=== PATIENT | male | born 1975 | race Caucasian/White ===

== ENCOUNTER 2021-01-19 07:20 | Outpatient (REF) | payer BC, SELFPAY ==
[2021-01-19 10:39] LABS: MANUAL DIFF FLAG NO
[2021-01-19 10:54] LABS: Basophils Percent Auto 0.7 % (0-2); Eosinophils Absolute Auto 0.2 X10*3/uL (0.0-0.4); Eosinophils Percent Auto 3.4 % (0-4); Hematocrit 43.7 % (42-52); Hemoglobin 14.8 g/dl (14.0-18.0); Imm Gran Abs Auto 0.03 X10*3/uL (0.00-0.03); Imm Gran Pct Auto 0.6 % (0.0-0.4); Lymphocytes Absolute Auto 1.7 X10*3/uL (1.2-4.9); Mean Corpuscular HGB Conc 33.9 g/dl (31.0-36.0); Mean Corpuscular Hemoglobin 31.5 pg (27.0-33.0); Mean Platelet Volume 10.7 fL (9.4-12.4); Monocytes Absolute Auto 0.5 X10*3/uL (0.1-1.2); Monocytes Percent Auto 9.4 % (2-11); Neutrophils Absolute Auto 2.9 X10*3/uL (2.0-8.3); Neutrophils Percent Auto 53.9 % (45-73); Platelet Count 298 X10*3/uL (160-400); Red Cell Distribution Width 12.7 % (11.0-16.0); White Blood Count 5.3 X10*3/uL (4.8-10.8)
[2021-01-19 11:00] LABS: Glucose Urine UA NEG (NEG); Leukocyte Esterase Urine NEG (NEG); Nitrite Urine NEG (NEG); Urine Blood NEG (NEG); Urine Ketones NEG (NEG); Urine Protein TRACE MG/DL (NEG-TRACE)
[2021-01-19 11:05] LABS: Appearance Urine HAZY; Color Urine YELLOW
[2021-01-19 11:09] LABS: Estimated Average Glucose 105 mg/dL; Hemoglobin A1C 125.8442 umol/L; Hemoglobin A1c % 5.3 %
[2021-01-19 11:39] LABS: Alanine Aminotransferase 20 U/L (0-40); Albumin Level 4.4 g/dL (3.5-5.0); Alkaline Phosphatase 139 U/L (39-117); Anion Gap 11 (12-20); Aspartate Amino Transferase 21 U/L (5-37); Bilirubin Total 0.9 mg/dL (0.0-1.0); Blood Urea Nitrogen 15 mg/dL (9-16); Carbon Dioxide 27 mmol/L (22-29); Chloride 104 mmol/L (96-108); Cholesterol 216 mg/dL; Estimated Glomerular Filt Rate > 60; Glucose Fasting 110 mg/dL (60-99); HDL Cholesterol 85 mg/dL; LDL Cholesterol Calculated 118 mg/dl; Potassium 4.3 mmol/L (3.3-5.1); Sodium 138 mmol/L (135-145); Total Protein 7.5 g/dL (6.5-8.0); Triglycerides 69 mg/dL
[2021-01-19 11:55] LABS: PSA,Total (Free>4and<10) 0.49 ng/mL (0.00-4.00)
[2021-01-19 12:11] LABS: Microalbum/Creatinine Ratio Ur 2.7 ug/mg cr
== END 2021-01-19 07:21 | disposition home or self-care (01) ==
LOC: HO.LNP 07:20
PROVIDERS: Visit Provider Internal Medicine
DX: Z00.00 Encounter for general adult medical examination without abnormal findings (principal); Z12.5 Encounter for screening for malignant neoplasm of prostate; R73.03 Prediabetes; E78.00 Pure hypercholesterolemia, unspecified
CPT/HCPCS: 80053; 80061; 81003; 82043; 83036; 84153; 85025

== ENCOUNTER 2021-01-20 14:03 | Outpatient (REF) | payer BC, SELFPAY ==
[2021-01-20 15:08] LABS: Alkaline Phosphatase 152 U/L (39-117)
== END 2021-01-20 14:04 | disposition home or self-care (01) ==
LOC: HO.LNP 14:03
PROVIDERS: Visit Provider Internal Medicine
DX: R74.8 Abnormal levels of other serum enzymes (principal)
CPT/HCPCS: 84075

== ENCOUNTER 2021-04-21 08:07 | Outpatient (REF) | payer BC, SELFPAY ==
--- NOTE | ~2021-04-21 | CT_ITS ---
EXAMINATION: CT CHEST WITH CONTRAST CLINICAL INFORMATION: Chronic cough COMPARISON: None TECHNIQUE: Multidetector volumetric CT imaging of the chest was obtained after the administration of 65 mL of Omnipaque 350 intravenous contrast without immediate adverse reactions. Axial MIP volume rendering provided. Sagittal and coronal reformatted images were obtained. This CT examination was performed using dose optimization techniques as appropriate, variously including the following: *Automated exposure control *Adjustment of mA and/or kV according to patient size (this includes techniques or standardized protocols for targeted exams where dose is matched to indication/reason for exam; i.e. extremities or head) *Use of iterative reconstruction technique DLP: 200 mGy-cm FINDINGS: LUNGS: There is a 2 mm probably calcified right middle lobe nodule axial image 113 series 7. There is a 2 mm peripheral or subpleural noncalcified right middle lobe nodule axial image 124 series 7. There is a 3 mm peripheral or subpleural right middle lobe nodule axial image 129 series 7. The lungs are otherwise clear. No evidence of interstitial lung disease emphysema or bronchiectasis is seen. No endobronchial or endotracheal lesion is seen. MEDIASTINUM: There is coronary artery calcification. No enlarged lymph nodes are seen. There is no pericardial effusion. The thoracic aorta is normal in caliber. The visualized thyroid gland is normal. PLEURA: There is no pleural effusion. No pleural mass or thickening. AXILLA: No lymphadenopathy. UPPER ABDOMEN: There is diverticulosis of the colon. OSSEOUS STRUCTURES: There are old or healing left anterior lateral seventh and eighth rib fractures. There are degenerative changes of the spine. CT/CT chest w con IMPRESSION: Small pulmonary nodules or micronodules. According to the UPDATED 2017 Fleischner Society recommendations, the advised follow-up imaging for less than 6 mm nodule: Low risk, no chest CT follow-up and high risk, optional chest CT follow-up in one year. Coronary artery calcification. Healing left anterior lateral rib fractures. Fleischner guidelines were followed.
[2021-04-21] MEDS: iohexoL 350 MG/ML 100 ML INFUS..BTL IV (09:16)
== END 2021-04-21 08:08 | disposition home or self-care (01) ==
LOC: HO.CT 08:07
PROVIDERS: Visit Provider Internal Medicine
DX: R05.3 Chronic cough (principal); R91.1 Solitary pulmonary nodule
CPT/HCPCS: 71260; Q9967

== ENCOUNTER 2021-07-28 10:16 | Outpatient (REF) | payer BC, SELFPAY ==
[2021-07-28 10:41] LABS: Alanine Aminotransferase 23 U/L (0-40); Albumin Level 4.5 g/dL (3.5-5.0); Alkaline Phosphatase 55 U/L (39-117); Aspartate Amino Transferase 22 U/L (5-37); Bilirubin Direct 0.3 mg/dL (0.0-0.5); Bilirubin Total 0.5 mg/dL (0.0-1.0); Cholesterol 154 mg/dL; Glucose Fasting 106 mg/dL (60-99); HDL Cholesterol 75 mg/dL; LDL Cholesterol Calculated 68 mg/dl; Total Protein 7.6 g/dL (6.5-8.0); Triglycerides 56 mg/dL
[2021-07-28 10:50] LABS: Estimated Average Glucose 114 mg/dL; Hemoglobin A1c % 5.6 %
[2021-07-28 11:25] LABS: Reflex LDLD? No
== END 2021-07-28 10:17 | disposition home or self-care (01) ==
LOC: HO.LNP 10:16
PROVIDERS: Visit Provider Internal Medicine
DX: E78.00 Pure hypercholesterolemia, unspecified (principal); R73.03 Prediabetes
CPT/HCPCS: 80061; 80076; 82947; 83036

== ENCOUNTER 2022-01-26 11:23 | Outpatient (REF) | payer BC, SELFPAY ==
[2022-01-26 11:26] LABS: MANUAL DIFF FLAG NO
[2022-01-26 11:40] LABS: Basophils Absolute Auto 0.1 X10*3/uL (0.0-0.2); Basophils Percent Auto 1.1 % (0-2); Eosinophils Absolute Auto 0.1 X10*3/uL (0.0-0.4); Eosinophils Percent Auto 1.1 % (0-4); Hematocrit 42.3 % (42.0-52.0); Hemoglobin 14.5 g/dl (14.0-18.0); Imm Gran Abs Auto 0.02 X10*3/uL (0.00-0.03); Imm Gran Pct Auto 0.4 % (0.0-0.4); Lymphocytes Absolute Auto 1.5 X10*3/uL (1.2-4.9); Mean Corpuscular HGB Conc 34.3 g/dl (31.0-36.0); Mean Corpuscular Volume 90.6 fL (80.0-98.0); Mean Platelet Volume 11.6 fL (9.4-12.4); Monocytes Absolute Auto 0.4 X10*3/uL (0.1-1.2); Monocytes Percent Auto 8.7 % (2-11); Neutrophils Absolute Auto 2.5 x10*3/uL (2.0-8.3); Neutrophils Percent Auto 54.7 % (45-73); Platelet Count 282 X10*3/uL (160-400); Red Blood Count 4.67 X10*6/uL (4.60-5.80); Red Cell Distribution Width 12.2 % (11.0-16.0); White Blood Count 4.5 X10*3/uL (4.8-10.8)
[2022-01-26 11:48] LABS: Alanine Aminotransferase 29 U/L (0-40); Albumin Level 4.5 g/dL (3.5-5.0); Alkaline Phosphatase 59 U/L (39-117); Anion Gap 15 (12-20); Aspartate Amino Transferase 21 U/L (5-37); Bilirubin Total 0.4 mg/dL (0.0-1.0); Blood Urea Nitrogen 16 mg/dL (9-16); Calcium 10.3 mg/dL (8.4-10.2); Carbon Dioxide 26 mmol/L (22-29); Chloride 104 mmol/L (96-108); Cholesterol 143 mg/dL; Estimated Average Glucose 111 mg/dL; Estimated Glomerular Filt Rate > 60; Glucose Fasting 88 mg/dL (60-99); HDL Cholesterol 60 mg/dL; Hemoglobin A1c % 5.5 %; LDL Cholesterol Calculated 70 mg/dl; Potassium 4.6 mmol/L (3.3-5.1); Sodium 140 mmol/L (135-145); Total Protein 7.5 g/dL (6.5-8.0); Triglycerides 66 mg/dL
[2022-01-26 12:10] LABS: PSA,Total (Free>4and<10) 0.39 ng/mL (0.00-4.00)
[2022-01-26 12:20] LABS: Appearance Urine Clear; Color Urine Yellow; Glucose Urine UA Negative (Negative); Leukocyte Esterase Urine Negative (Negative); Nitrite Urine Negative (Negative); PH 5.5 (5.0-9.0); Specific Gravity - Urine 1.015 (1.005-1.025); Urine Blood Negative (Negative); Urine Ketones Negative (Negative); Urine Protein Negative (Neg-Trace)
[2022-01-26 12:25] LABS: Bacteria Urine None Seen (None Seen); Hyaline Casts Urine 0-2 /LPF (0-2); RBC Urine 0-2 /HPF (0-2); Squamous Epithelial Cell Urine 0-2 /HPF (0-2); WBC Urine 0-5 /HPF (0-5)
[2022-01-26 12:28] LABS: Creatinine Urine 101.92 mg/dL; Microalbumin Urine < 5.0 mg/L
== END 2022-01-26 11:24 | disposition home or self-care (01) ==
LOC: HO.LNP 11:23
PROVIDERS: Visit Provider Internal Medicine
DX: Z00.00 Encounter for general adult medical examination without abnormal findings (principal); Z12.5 Encounter for screening for malignant neoplasm of prostate; E78.00 Pure hypercholesterolemia, unspecified; R73.03 Prediabetes
CPT/HCPCS: 80053; 80061; 81001; 82043; 83036; 84153; 85025

== ENCOUNTER 2023-02-04 10:34 | Outpatient (REF) | payer BC, SELFPAY ==
[2023-02-04 10:37] LABS: MANUAL DIFF FLAG NO
[2023-02-04 11:15] LABS: Basophils Absolute Auto 0.1 X10*3/uL (0.0-0.2); Basophils Percent Auto 1.2 % (0-2); Eosinophils Absolute Auto 0.1 X10*3/uL (0.0-0.4); Eosinophils Percent Auto 2.1 % (0-4); Hematocrit 41.6 % (42.0-52.0); Hemoglobin 14.1 g/dl (14.0-18.0); Imm Gran Abs Auto 0.02 X10*3/uL (0.00-0.03); Imm Gran Pct Auto 0.3 % (0.0-0.4); Lymphocytes Absolute Auto 2.1 X10*3/uL (1.2-4.9); Lymphocytes Percent Auto 35.8 % (20-40); Mean Corpuscular HGB Conc 33.9 g/dl (31.0-36.0); Mean Corpuscular Hemoglobin 30.7 pg (27.0-33.0); Mean Corpuscular Volume 90.4 fL (80.0-98.0); Mean Platelet Volume 10.7 fL (9.4-12.4); Monocytes Absolute Auto 0.5 X10*3/uL (0.1-1.2); Monocytes Percent Auto 8.3 % (2-11); Neutrophils Percent Auto 52.3 % (45-73); Platelet Count 243 X10*3/uL (160-400); White Blood Count 5.8 X10*3/uL (4.8-10.8)
[2023-02-04 11:27] LABS: Appearance Urine Clear; Color Urine Yellow; Glucose Urine UA Negative (Negative); Leukocyte Esterase Urine Negative (Negative); Nitrite Urine Negative (Negative); PH 6.5 (5.0-9.0); Urine Blood Negative (Negative); Urine Ketones Negative (Negative); Urine Protein Negative (Neg-Trace)
[2023-02-04 11:28] LABS: Estimated Average Glucose 108 mg/dL; Hemoglobin A1c % 5.4 % (<6.0)
[2023-02-04 11:33] LABS: Alanine Aminotransferase 41 U/L (0-40); Albumin Level 4.1 g/dL (3.5-5.0); Alkaline Phosphatase 65 U/L (39-117); Anion Gap 10 (12-20); Aspartate Amino Transferase 32 U/L (5-37); Bacteria Urine None Seen (None Seen); Bilirubin Total 0.4 mg/dL (0.0-1.0); Blood Urea Nitrogen 12 mg/dL (9-16); Calcium 9.6 mg/dL (8.4-10.2); Carbon Dioxide 28 mmol/L (22-29); Chloride 106 mmol/L (96-108); Cholesterol 151 mg/dL (<200); Estimated Glomerular Filt Rate > 60; Glucose Fasting 91 mg/dL (60-99); HDL Cholesterol 71 mg/dL (>40); Hyaline Casts Urine 0-2 /LPF (0-2); LDL Cholesterol Calculated 66 mg/dL (<100); Potassium 4.6 mmol/L (3.3-5.1); RBC Urine 0-2 /HPF (0-2); Sodium 139 mmol/L (135-145); Squamous Epithelial Cell Urine 0-2 /HPF (0-2); Total Protein 7.1 g/dL (6.5-8.0); Triglycerides 71 mg/dL (<150); WBC Urine 0-5 /HPF (0-5)
[2023-02-04 11:45] LABS: PSA,Total (Free>4and<10) 0.51 ng/mL (0.00-4.00)
[2023-02-04 12:29] LABS: Creatinine Urine 152.34 mg/dL; Microalbum/Creatinine Ratio Ur 3.2 ug/mg cr (<30)
== END 2023-02-04 10:35 | disposition home or self-care (01) ==
LOC: HO.LNP 10:34
PROVIDERS: PCP Internal Medicine; Visit Provider Internal Medicine
DX: Z00.00 Encounter for general adult medical examination without abnormal findings (principal); Z12.5 Encounter for screening for malignant neoplasm of prostate; R73.03 Prediabetes; E78.00 Pure hypercholesterolemia, unspecified; D70.9 Neutropenia, unspecified
CPT/HCPCS: 80053; 80061; 81001; 82043; 82570; 83036; 84153; 85025

== ENCOUNTER 2023-06-14 08:50 | Day surgery (SDC) | payer BC, SELFPAY ==
--- NOTE | 2023-06-13 09:54 | P.CONAN_ITS ---
Documented by User: Mayte Martínez NP 06/13/23 09:55 HPI - Anesthesia Eval Consult details Narrative: 47yo M for Colonoscopy [facility] Past Medical History Medical History HLD (hyperlipidemia) Meds Allergies Allergy/AdvReac Type Severity Reaction Status Date / Time amoxicillin Allergy Unknown Unknown Verified 06/13/23 09:55 Home Medications Medication Instructions Recorded Confirmed Last Taken Type atorvastatin 20 mg tablet 20 mg PO DAILY 06/13/23 06/13/23 Unknown History Assessment and Plan Assessment Anesthesia Assessment: Chart Reviewed Documented by User: Marta García MD 06/14/23 08:23 [facility] Past Medical History Medical History HLD (hyperlipidemia) Family History Family history of problems with anesthesia: No Surgical History History of Problems with Anesthesia: No Meds Allergies Allergy/AdvReac Type Severity Reaction Status Date / Time amoxicillin Allergy Unknown Unknown Verified 06/13/23 09:55 Home Medications Medication Instructions Recorded Confirmed Last Taken Type atorvastatin 20 mg tablet 20 mg PO DAILY 06/13/23 06/13/23 Unknown History Exam Airway Mallampati Class: II TM Dist: >3cm Neck ROM: Full Heart: rrr Lungs: cta Assessment and Plan Assessment Anesthesia Assessment: Anesthesia Plan Discussed Final Anesthetic Review Family History of Problems with Anesthesia: No History of Problems with Anesthesia: No NPO: Yes ASA Class: II Final Preanesthetic Review: No Changes in Pt Med Stat, Meds/Allgs Chart Reviewed, Consent Obtained/Reviewed and Anes Risks/Benef Reviewed Patient Risk: Low Procedure Risk: Low Anesthetic Plan Anesthetic Plan: MAC: Disposition: Standard PACU
[2023-06-14] MEDS: Lactated Ringers 1,000 ML 100 ML IVCONT (09:01)
[2023-06-14 09:19] VITALS: BP 143/81; PULSE 72; RESP 18; TEMP 36.6; O2SAT 99
[2023-06-14 10:31] VITALS: BP 119/63; PULSE 75; RESP 16; TEMP 36.3; O2SAT 95
--- NOTE | 2023-06-14 10:34 | PM.OP ---
Brief Operative Note Date of Service: 06/14/23 Pre-op diagnosis: Screening Post-op diagnosis: other (Internal hemorrhoids) Procedure: Colonoscopy to the cecum and TI Surgeon: Jonathon Mora MD Anesthesia: MAC Was an Terminal Makeup Operator used for this Procedure?: No Estimated blood loss (mL): 0 Pathology: none sent Condition: stable Disposition: PACU
[2023-06-14 10:46] VITALS: BP 121/72; PULSE 58; RESP 18; TEMP 36.6; O2SAT 98
--- NOTE | 2023-06-14 11:22 | OP_ITS ---
DATE OF SERVICE: 06/14/2023 SURGEON: Jonathon Mora MD INDICATIONS: The patient presents for evaluation of colorectal cancer screening. Full consent has been obtained from him for this, including risks of bleeding and perforation. PREOPERATIVE DIAGNOSIS: Colorectal cancer screening. POSTOPERATIVE DIAGNOSIS: PROCEDURE PERFORMED: Colonoscopy to cecum and terminal ileum. ESTIMATED BLOOD LOSS: COMPLICATIONS: ANESTHESIA: Monitored anesthesia care. ASSISTANTS: SPECIMENS: POSTOPERATIVE DIAGNOSES: Colorectal cancer screening, internal hemorrhoids. DESCRIPTION OF PROCEDURE: The patient was placed in the left lateral decubitus position. The digital rectal exam revealed no abnormalities. The Olympus video pediatric colonoscope was entered into the rectum and advanced easily to the cecum. Once in the cecum, I did identify normal-appearing cecal pouch with appendiceal orifice and a normal-appearing ileocecal valve. The terminal ileum was cannulated and appeared normal. The scope withdrawn back in the colon. The entire cecum and ileocecal valve appeared normal. The scope was slowly withdrawn assessing all mucosal surfaces carefully. The preparation was excellent. I did not visualize any sign of polyps, colitis, or angiodysplasia. In the rectum, scope was retroflexed visualizing small internal hemorrhoids, but no other pathology. The rectal mucosa appeared normal. The scope was straightened and withdrawn from the patient. He tolerated the procedure well and was returned to the recovery area in stable condition. IMPRESSION: Internal hemorrhoids. PLAN: Given today's negative exam and negative family history, I would recommend a followup colonoscopy in 10 years. He will otherwise see me on a p.r.n. basis. Jonathon Mora MD RMW/MODL / [phone]
== END 2023-06-14 11:27 | disposition home or self-care (01) ==
PROVIDERS: PCP Internal Medicine; Visit Provider Internal Medicine
PROC: 0DJD8ZZ Inspection of Lower Intestinal Tract, Via Natural or Artificial Opening Endoscopic (ICD-10-PCS; CPT 45378; principal; 2023-06-14 10:00)
DX: Z12.11 Encounter for screening for malignant neoplasm of colon (principal); K64.8 Other hemorrhoids; E78.5 Hyperlipidemia, unspecified; Z79.02 Long term (current) use of antithrombotics/antiplatelets
CPT/HCPCS: 45378; J1596; J2704

== ENCOUNTER 2025-03-19 11:26 | Outpatient (REF) | payer BC, SELFPAY ==
--- OUTSIDE RECORDS SUMMARY | 2024-02-10 03:00 | XMS_ITS ---
Author Organization Brad Soria MD Address [address] [place] [id number] Care Team Providers Care Cost Accountant Name Role Phone Brad Soria Primary Care Provider [phone] REASON FOR VISIT FASTING LABS Encounters Encounter Location Date Provider Diagnosis Brad Soria MD [address] [place] [phone] 02/10/2024 Brad Soria Blood tests for routine general physical examination Z00.00 ; Prediabetes R73.03 ; Elevated cholesterol E78.00 and Neutropenia D70.9 Assessments Encounter Date Diagnosis (ICD Code) Assessment Notes Treatment Notes Treatment Clinical Notes Section Notes 02/10/2024 Blood tests for routine general physical examination (ICD-10 - Z00.00) 02/10/2024 Prediabetes (ICD-10 - R73.03) 02/10/2024 Elevated cholesterol (ICD-10 - E78.00) 02/10/2024 Neutropenia (ICD-10 - D70.9) Plan Of Treatment Next Appt Details Provider Name:Brad Dubois ier, 03/26/2025 01:30:00 PM, [address], Suite [facility], [place], [place], [phone], Progress Notes * Kodi HENNESSY MDOB:[birth year] (49 yo M)Acc No.[id number]:02/10/2024 Progress Note Patient: Anjelica Kodi CORTES Provider: Thang Soria MD :1975 A ge:48 Y S ex:Male Date:02/10/2024 Address:[address] [place] [address], [place], [id number] Subjective: * Chief Complaints: * 1 . FASTING LABS. * Medical History: Objective: * Vitals: Assessment: * Assessment: 1. B lood tests for routine general physical examination - Z00.00 (Primary) 2 .?Prediabetes - R73.03 3 . E levated cholesterol - E78.00 4 . N eutropenia - D70.9 Plan: * Treatment: ?LAB: Comprehensive Victor. Panel Fast (Order Cancelled)* Nicolas Jeimy B 02/06/20 10:48:58 AM EDT > To be done 02-10-24 ?LAB: Lipid Panel (Order Cancelled)* Jeimy Valenzuela 02/06/20 10:48:58 AM EDT > To be done 02-10-24 ?LAB: PSA,Total (Free>4and<10) (Order Cancelled)* Jeimy Valenzuela 02/06/20 10:48:58 AM EDT > To be done 02-10-24 ?LAB: Microalbumin, Random (Order Cancelled)* Jeimy Valenzuela 02/06/20 10:48:58 AM EDT > To be done 02-10-24 ?LAB: Hemoglobin A1c (Order Cancelled)* Jeimy Valenzuela 02/06/20 10:48:58 AM EDT > To be done 02-10-24 ?LAB: UA ClnCatch+Micro w/rflx Cult (Order Cancelled)* Jeimy Valenzuela 02/06/20 10:48:58 AM EDT > To be done 02-10-24 2.?Prediabetes?LAB: Complete Blood Count Auto Diff (Order Cancelled)* Jeimy Valenzuela 02/06/20 10:48:58 AM EDT > To be done 02-10-24 ?LAB: Comprehensive Victor. Panel Fast (Order Cancelled)* Jeimy Valenzuela 02/06/20 10:48:58 AM EDT > To be done 02-10-24 ?LAB: Lipid Panel (Order Cancelled)* Jeimy Valenzuela 02/06/20 10:48:58 AM EDT > To be done 02-10-24 ?LAB: PSA,Total (Free>4and<10) (Order Cancelled)* Jeimy Valenzuela 02/06/20 10:48:58 AM EDT > To be done 02-10-24 ?LAB: Microalbumin, Random (Order Cancelled)* Jeimy Valenzuela 02/06/20 10:48:58 AM EDT > To be done 02-10-24 ?LAB: Hemoglobin A1c (Order Cancelled)* Jeimy Valenzuela 02/06/20 10:48:58 AM EDT > To be done 02-10-24 ?LAB: UA ClnCatch+Micro w/rflx Cult (Order Cancelled)* Nicolas Jeimy B 02/06/20 10:48:58 AM EDT > To be done 02-10-24 3.?Elevated cholesterol?LAB: Complete Blood Count Auto Diff (Order Cancelled)* Jeimy Valenzuela 02/06/20 10:48:58 AM EDT > To be done 02-10-24 ?LAB: Comprehensive Victor. Panel Fast (Order Cancelled)* Jeimy Valenzuela 02/06/20 10:48:58 AM EDT > To be done 02-10-24 ?LAB: Lipid Panel (Order Cancelled)* Jeimy Valenzuela 02/06/20 10:48:58 AM EDT > To be done 02-10-24 ?LAB: PSA,Total (Free>4and<10) (Order Cancelled)* Jeimy Valenzuela 02/06/20 10:48:58 AM EDT > To be done 02-10-24 ?LAB: Microalbumin, Random (Order Cancelled)* Jeimy Valenzuela 02/06/20 10:48:58 AM EDT > To be done 02-10-24 ?LAB: Hemoglobin A1c (Order Cancelled)* Jeimy Valenzuela 02/06/20 10:48:58 AM EDT > To be done 02-10-24 ?LAB: UA ClnCatch+Micro w/rflx Cult (Order Cancelled)* Jeimy Valenzuela 02/06/20 10:48:58 AM EDT > To be done 02-10-24 4.?Neutropenia?LAB: Complete Blood Count Auto Diff (Order Cancelled)* Jeimy Valenzuela 02/06/20 10:48:58 AM EDT > To be done 02-10-24 ?LAB: Comprehensive Victor. Panel Fast (Order Cancelled)* Jeimy Valenzuela 02/06/20 10:48:58 AM EDT > To be done 02-10-24 ?LAB: Lipid Panel (Order Cancelled)* Jeimy Valenzuela 02/06/20 10:48:58 AM EDT > To be done 02-10-24 ?LAB: PSA,Total (Free>4and<10) (Order Cancelled)* Jeimy Valenzuela 02/06/20 10:48:58 AM EDT > To be done 02-10-24 ?LAB: Microalbumin, Random (Order Cancelled)* Jeimy Valenzuela 02/06/20 10:48:58 AM EDT > To be done 02-10-24 ?LAB: Hemoglobin A1c (Order Cancelled)* Jeimy Valenzuela 02/06/20 10:48:58 AM EDT > To be done 02-10-24 ?LAB: UA ClnCatch+Micro w/rflx Cult (Order Cancelled)* Jeimy Valenzuela 02/06/20 10:48:58 AM EDT > To be done 02-10-24 * * The named appointment provid er may or may not be the originator of this progress note, and it is not deemed complete until electronically signed by the appointment provider. Sign off status: Pending * Provider: Thang Soria MD Date: 0 02/10/2024 Generated for Lindsey goldman/Larry/Neelam on: 01:51 PM EDT
--- OUTSIDE RECORDS SUMMARY | 2024-02-17 11:45 | XMS_ITS ---
Author Organization Brad Soria MD Address [address] [place], [place] [phone] Care Team Providers Care Pipelines Superintendent Name Role Phone Brad Soria Primary Care Provider [phone] Allergies Allergen (clinical drug ingredient) Drug/Non Drug Allergy documented on EMR Reaction Allergy Type Onset Date Status amoxicillin Amoxicillin rash Drug Allergy Act kennedy REASON FOR VISIT ANNUAL EXAM, Labs in patient docs, Will be gerting flu vaccine at work Medications Medication SIG (Take, Route, Frequency, Duration) Notes Start Date End Date Status Tadalafil 20 MG 1/2 tablet Orally On ce a day for 90 days 05/08/2022 Active Fluticasone Propionate 50 MCG/ACT 1 spray in each nostril Nasally Once a day for 30 day(s) 01/23/2021 Not-Taking Atorvastatin Calcium 20 MG TAKE ONE TABLET BY MOUTH EVERY DAY for 90 Active EpiPen 2-Austin 0.3 MG/0.3ML as directed In jection daily for 30 days 08/15/2018 Active Social History Tobacco Use: Social History Observation Description Date Details (start date - stop date) Never Smoker NA - NA Tobacco Use/Smoking Question Answer Notes Patient is a nonsmoker Additional Findings: Tobacco Non-User Cu rrent non-smoker, currently using no form of tobacco Alcohol Screen Question Answer Notes Did you have a drink contain ing alcohol in the past year? Yes How often did you have a dri nk containing alcohol in the past year? 2 to 4 times a month (2 points) How many drinks did you have on a typical day when you were drinking in the past year? 1 or 2 drinks (0 point) How often did you have 6 or more drinks on one occasion in the past year? Never (0 point) Points 2 Interpretation Negative Vital Signs Blood pressure systolic 138 mm Hg 02/17/20 24 Blood pressure diastolic 94 mm Hg 024 Height 68.5 in 02/17/2024 Weight 210 lbs 02/17/2024 BMI 31.46 kg/m2 02/17/2024 weight is up 6 pounds since 02-11-23 Encounters Encounter Location Date Provider Diagnosis Brad Soria MD [address] [place] [address] [place] [phone] 02/17/2024 Brad Soria Borderline hypertension R03.0 ; Encounter for general adult medical examination without abnormal findings Z00.00 and Erectile dysfunction, unspecified erectile dysfunction type N52.9 Assessments Encounter Date Diagnosis (ICD Code) Assessment Notes Treatment Notes Treatment Clinical Notes Section Notes 02/17/2024 Borderline hypertension (ICD-10 - R03.0) is going to lose weight and repeat bp 02/17/2024 Encounter for general adult medical examination without abnormal findings (ICD-10 - Z00.00) Labs reviewed and discussed with patient 02/17/2024 Erectile dysfunction, unspecified erectile dysfunction type (ICD-10 - N52.9) Plan Of Treatment Medication Medication Name Sig Start Date Stop Date Notes Tadalafil 20 MG 1/2 tablet Orally Once a day for 90 days 1 07/09/2021 Treatment Notes Assessment Notes Borderline hypertension is going to lose weight and repeat bp Encounter for general adult medical examination without abnormal findings Labs reviewed and discussed with patient Next Appt Details Follow Up: 6 Months, Reason: Provider Name:Brad hogan, 03/26/2025 01:30:00 PM, [address] [place] [address], Suite [facility], [place], [place], [phone], Progress Notes * Kodi HENNESSY MDOB:[birth year] (48 yo M)Acc No.[id number]:02/17/2024 Progress Notes Patient: Anjelica Kodi crandall Provider: Thang Soria MD :1975 A ge:48 Y S ex:Male Date:02/17/2024 Address:[address] [place], [place] [id number] Subjective: * Chief Complaints: * A NNUAL EXAMLabs in patient Ila be gerting flu vaccine at work * HPI: D epression Screening: PHQ-9 L ittle interest or pleasure in doing things N ot at all, F eeling down, depressed, or hopeless N ot at all, T rouble falling or staying asleep, or sleeping too much N ot at all, F eeling tired or having little energy N ot at all, P oor appetite or overeating N ot at all, F eeling bad about yourself or that you are a failure, or have let yourself or your family down N ot at all, T rouble concentrating on things, such as reading the newspaper or watching television N ot at all, M oving or speaking so slowly that other people could have noticed; or the opposite, being so fidgety or restless that you have been moving around a lot more than usual N ot at all, T houghts that you would be better off or of hurting yourself in some way N ot at all, T otal Score 0 . I nterpretation and Intervention D epression Screening Findings N egative, F ollow-Up for Depression : review of PHQ-9 found negative result, no follow-up needed. pt is a 48 yo male here for annual exam, he has been doing well. no problems medically. C ommunication Needs: Communication Needs D oes the patient have a hearing impairment N o, D oes the patient have a vision impairment? N o, D oes the patient have a cognition impairment? N o. S DUANE Questions: SDOH Questions I n the past year have you been worried about losing housing? N o, I n the past year have you or any family members you live with been unable to get any of the following when it was really needed? Check all that apply: N one. * ROS: G eneral/Constitutional: Change in appetite d enies. C hills d enies. F ever d enies. O phthalmologic: Blurred vision d enies. D ischarge d enies. P ain d enies. E NT: Decreased hearing d enies. S ore throat d enies.?Swollen glands d enies. E ndocrine: Cold intolerance d enies. E xcessive thirst d enies. H eat intolerance d enies. W eight loss d enies. R espiratory: Cough d enies. S hortness of breath at rest d enies. S hortness of breath with exertion d enies. W heezing d enies. C ardiovascular: Chest pain at rest d enies. C hest pain with exertion?denies. I rregular heartbeat d enies. S hortness of breath d enies. ? G astrointestinal: Abdominal pain d enies. C hange in bowel habits d enies. D iarrhea d enies. N ausea d enies. R ectal bleeding d enies. V omiting d enies . G enitourinary: Blood in urine d enies. D ifficulty urinating d enies. F requent urination d enies. M usculoskeletal: Painful joints d enies. W eakness d enies. ? S kin: Dry skin d enies. I tching d enies. D enies?Mole(s), changes in moles, new moles or any lesions of concern. D enies P hotosensitivity. R vadim d enies. N eurologic: Dizziness d enies. F ainting d enies. H eadache?denies. * Medical History: * Surgical History: * Hospitalization/Major Diagno stic Procedure: * Family History: F ather: alive 76 yrs. M other: 65 yrs. 1 brother(s) . 1 son(s) , 1 daughter(s) . . Mother- Alcohol related Father-Cardiac, Denies mental health/substance abuse family history, No pertinent family medical history, Denies mental health/substance abuse family history. * Social History: T obacco Use: T obacco Use/Smoking P atient is a n onsmoker, A dditional Findings: Tobacco Non-User C urrent non-smoker, currently using no form of tobacco. D rugs/Alcohol: A lcohol Screen D id you have a drink containing alcohol in the past year? Y es, H ow often did you have a drink containing alcohol in the past year? 2 to 4 times a month (2 points), H ow many drinks did you have on a typical day when you were drinking in the past year? 1 or 2 drinks (0 point), H ow often did you have 6 or more drinks on one occasion in the past year? N ever (0 point), P oints 2 , I nterpretation N egative. M iscellaneous: C affeine: yes, frequency:, 2-3 cups per day. Children: yes. no Community involvements. Exercise: yes, 1-2 times per week playing hockey 2 hours twice a week spinning. Housing: owning. Living with: family, and son. Marital status: . Occupation: works full-time. Pets: none. no Travel outside of the [place]. * Medications: T akingEpiPen 2-Austin 0.3 MG/0.3ML Solution Auto-injector as directed Injection dailyTadalafil 20 MG Tablet 1/2 tablet Orally Once a dayAtorvastatin Calcium 20 MG Tablet TAKE ONE TABLET BY MOUTH EVERY DAY Taking EpiPen 2-Austin 0.3 MG/0.3ML Solution Auto-injector as directed Injection dailyTaking Tadalafil 20 MG Tablet 1/2 tablet Orally Once a dayTaking Atorvastatin Calcium 20 MG Tablet TAKE ONE TABLET BY MOUTH EVERY DAY Not-Taking/PRNFluticasone Propionate 50 MCG/ACT Suspension 1 spray in each nostril Nasally Once a dayMedication List reviewed and reconciled with the patientNot-Taking/PRN Fluticasone Propionate 50 MCG/ACT Suspension 1 spray in each nostril Nasally Once a dayMedication List reviewed and reconciled with the patient * Allergies: A lloyd: zayra[Allergies Verified] Objective: * Vitals: H t: 68.5, Wt:210, BMI:31.46, BP:138/94 weight is up 6 pounds since 02-11-23. * Examination: G eneral Examination: GENERAL APPEARANCE: w ell developed, well nourished, in no acute distress. HEAD: n ormocephalic, atraumatic. EYES: p upils equal, round, reactive to light and accommodation, sclera non-icteric. EARS: n ormal. ORAL CAVITY: m ucosa moist. THROAT: c lear. NECK/THYROID: n chanel supple, full range of motion, no cervical lymphadenopathy, no bruits. SKIN: w arm and dry, no suspicious lesions. HEART: r egular rate and rhythm, S1, S2 normal, no murmurs.? LUNGS: c lear to auscultation bilaterally. ABDOMEN: s oft, nontender, nondistended, bowel sounds present, normal, no organomegaly , no masses palpable. RECTAL EXAM: n ormal tone, no external hemorrhoids, no masses palpable, prostate normal, stool guaiac negative. MALE GENITOURINARY: c ircumcised, no penile lesions or discharge. EXTREMITIES: n o clubbing, cyanosis, or edema. NEUROLOGIC: n onfocal, motor strength normal upper and lower extremities, sensory exam intact. Assessment: * Assessment: 1. E ncounter for general adult medical examination without abnormal findings - Z00.00 (Primary) 2 . B orderline hypertension - R03.0 3 . E rectile dysfunction, unspecified erectile dysfunction type - N52.9 Plan: * Treatment: 2. B orderline hypertension Notes: is going to lose weight and repeat bp 3. E rectile dysfunction, unspecified erectile dysfunction type Continue Tadalafil Tablet, 20 MG, 1/2 tablet, Orally, Once a day, 90 days, 60, Refills 4. ? * Procedure Codes: * Follow Up: 6 Months * * Sign off status: Completed true * Provider: Thang Soria MD Date: 0 02/17/2024 Generated for Lindsey goldman/Larry/Ranjititting on: 01:52 PM EDT History and Physical Notes * HPI (History of Present Illness) Category Sub-Category Detail Notes Category Not es Depression Screening PHQ-9 Little inte rest or pleasure in doing things: Not at all pt is a 48 yo male here for annual exam, he has been doing well. no problems medically Feeling down, depressed, or hopeless: No t at all Trouble falling or staying asleep, or sl eeping too much: Not at all Feeling tired or having little energy: N ot at all Poor appetite or overeating: Not at all Feeling bad about yourself o r that you are a failure, or have let yourself or your family down: Not at all Trouble concentrating on thi ngs, such as reading the newspaper or watching television: Not at all Moving or speaking so slowly that other people could have noticed; or the opposite, being so fidgety or restless that you have been moving around a lot more than usual: Not at all Thoughts that you would be b jarett off or of hurting yourself in some way: Not at all Total Score: 0 Interpretation and Intervention Depression Uli fraser Findings: Negative Follow-Up for Depression: : review of PH Q-9 found negative result, no follow-up needed SDOH Questions SDOH Questions In the past year have you been worried about losing housing?: No In the past year have you or any family members you live with been unable to get any of the following when it was really needed? Check all that apply:: None Communication Needs Communication Needs Does the patient have a hearing impairment: No Does the patient have a vision impairmen t?: No Does the patient have a cognition impair ment?: No Examination Category Sub-Category Detail Notes Category Not es General Examination GENERAL APPEARANCE: well dev eloped, well nourished, in no acute distress HEAD: normocephalic, atrau matic EYES: pupils equal, round, reactive to light and accommodation, sclera non-icteric EARS: normal THROAT: clear NECK/THYROID: neck supple, full ra nge of motion, no cervical lymphadenopathy, no bruits HEART: regular rate and rhy thm, S1, S2 normal, no murmurs LUNGS: clear to auscultatio n bilaterally ABDOMEN: soft, nontender, non distended, bowel sounds present, normal, no organomegaly , no masses palpable NEUROLOGIC: nonfocal, motor stre ngth normal upper and lower extremities, sensory exam intact SKIN: warm and dry, no rosi picious lesions EXTREMITIES: no clubbing, cyanosi s, or edema MALE GENITOURINARY: circumcised, no peni le lesions or discharge RECTAL EXAM: normal tone, no exte rnal hemorrhoids, no masses palpable, prostate normal, stool guaiac negative ORAL CAVITY: mucosa moist
--- OUTSIDE RECORDS SUMMARY | 2024-08-10 04:00 | XMS_ITS ---
Author Organization Brad Soria MD Address [address] [place] [phone] Care Team Providers Care Religion Department Chair Name Role Phone Brad Soria Primary Care Provider REASON FOR VISIT FASTING LIPIDS and U/A per Dr Soria was not done with Yearly labs Encounters Encounter Location Date Provider Diagnosis rBad Soria MD [address] [place] [phone] 08/10/2024 Brad Soria Prediabetes R73.03 and Elevated cholesterol E78.00 Assessments Encounter Date Diagnosis (ICD Code) Assessment Notes Treatment Notes Treatment Clinical Notes Section Notes 08/10/2024 Prediabetes (ICD-10 - R73.03) 08/10/2024 Elevated cholesterol (ICD-10 - E78.00) Plan Of Treatment Pending Test Test Name Order Date Lipid Panel 08/10/2024 UA ClnCatch+Micro w/rflx Cult 08/10/2024 Next Appt Details Provider Name:Brad Dubois ier, 03/26/2025 01:30:00 PM, [address], [address], [place], [place], [phone], Progress Notes * Kodi HENNESSY MDOB:[birth year] (49 yo M)Acc No.[id number]:08/10/2024 Progress Note Patient: Anjelica Kodi CORTES Provider: Thang Soria MD :1975 A ge:49 Y S ex:Male Date:08/10/2024 Address: [address] , [phone] Subjective: * Chief Complaints: * 1 . FASTING LIPIDS and U/A per Dr Soria was not done with Yearly labs. * Medical History: Objective: * Vitals: Assessment: * Assessment: 1. P rediabetes - R73.03 2 . E levated cholesterol - E78.00 ? Plan: * Treatment: 2. E levated cholesterol L AB: Lipid Panel L AB: UA ClnCatch+Micro w/rflx Cult * * The named appointment provid er may or may not be the originator of this progress note, and it is not deemed complete until electronically signed by the appointment provider. Sign off status: Pending * Provider: Thang Soria MD Date: 0 08/10/2024 Generated for Lindsey goldman/Larry/Ranjititting on: 1 01:52 PM EDT
--- OUTSIDE RECORDS SUMMARY | 2024-08-17 11:30 | XMS_ITS ---
Author Organization Brad Soria MD Address [address] [place] [phone] Care Team Providers Care Cleaning Laborer Name Role Phone Brad Soria Primary Care Provider Allergies Allergen (clinical drug ingredient) Drug/Non Drug Allergy documented on EMR Reaction Allergy Type Onset Date Status amoxicillin Amoxicillin rash Drug Allergy Act kennedy Results Component Value Reference Range Notes Hemoglobin A1c Reviewed date:08/17/2024 03:46:07 PM Interpretation: Performing Lab: Notes/Report: Hemoglobin A1c 5.8 REASON FOR VISIT 6 MO, Labs in patient docs Medications Medication SIG (Take, Route, Frequency, Duration) Notes Start Date End Date Status Fluticasone Propionate 50 MCG/ACT 1 spray in each nostril Nasally Once a day for 30 day(s) 01/23/2021 Not-Taking Tadalafil 20 MG 1/2 tablet Orally On ce a day for 90 days 05/08/2022 Active EpiPen 2-[place] 0.3 MG/0.3ML as directed In jection daily for 30 days 08/15/2018 Active Atorvastatin Calcium 20 MG TAKE ONE TABLET BY MOUTH EVERY DAY for 90 Active Vital Signs Blood pressure systolic 158 mm Hg 08/18/19 25 Blood pressure diastolic 84 mm Hg 025 Height 68.5 in 08/17/2024 Weight 209 lbs 08/17/2024 BMI 31.31 kg/m2 08/17/2024 weight is down 1 poiund sin e 02-17-24 Encounters Encounter Location Date Provider Diagnosis Brad Soria MD [address] [place] [phone] 08/17/2024 Brad Soria Erectile dysfunction , unspecified erectile dysfunction type N52.9 ; Borderline hypertension R03.0 and Prediabetes R73.03 Assessments Encounter Date Diagnosis (ICD Code) Assessment Notes Treatment Notes Treatment Clinical Notes Section Notes 08/17/2024 Erectile dysfunction, unspecified erectile dysfunction type (ICD-10 - N52.9) 08/17/2024 Borderline hypertension (ICD-10 - R03.0) wants to diet and recheck in 3 months, will continue to monitor 08/17/2024 Prediabetes (ICD-10 - R73.03) pending labs Plan Of Treatment Medication Medication Name Sig Start Date Stop Date Notes Tadalafil 20 MG 1/2 tablet Orally Once a day for 90 days 1 07/09/2021 Treatment Notes Assessment Notes Borderline hypertension wants to diet an d recheck in 3 months, will continue to monitor Prediabetes pending labs Next Appt Details Follow Up: 3 Months, Reason: Provider Name:Brad Dubois ier, 03/26/2025 01:30:00 PM, [address] [place] [address], [facility], [place], [place], [phone], Progress Notes * Kodi HENNESSY MDOB:[birth year] (49 yo M)Acc No.[id number]:08/17/2024 Progress Notes Patient: Eusebio ALVARADOren Anton Provider: Thang Soria MD :1975 A ge:49 Y S ex:Male Date:08/17/2024 Address:[address] [place], [place] [phone] Subjective: * Chief Complaints: * 6 MOLabs in patient docs * HPI: S ymptom(s): patient is a 49 yo male here for 6 month folllow up visit. * ROS: G eneral/Constitutional: Denies C hills. D enies F atigue. D enies F ever. D enies H eadache. E NT: Denies S ore throat. R espiratory: Denies C ough. D enies S hortness of breath at rest. D enies S hortness of breath with exertion. G astrointestinal: Denies D iarrhea. D enies N ausea. * Medical History: * Surgical History: * Hospitalization/Major Diagno stic Procedure: * Medications: T akingEpiPen 2-[place] 0.3 MG/0.3ML Solution Auto-injector as directed Injection daily Atorvastatin Calcium 20 MG Tablet TAKE ONE TABLET BY MOUTH EVERY DAY Tadalafil 20 MG Tablet 1/2 tablet Orally Once a day Taking EpiPen 2-[place] 0.3 MG/0.3ML Solution Auto-injector as directed Injection daily Taking Atorvastatin Calcium 20 MG Tablet TAKE ONE TABLET BY MOUTH EVERY DAY Taking Tadalafil 20 MG Tablet 1/2 tablet Orally Once a day Not-Taking/PRNFluticasone Propionate 50 MCG/ACT Suspension 1 spray in each nostril Nasally Once a day Medication List reviewed and reconciled with the patientNot-Taking/PRN Fluticasone Propionate 50 MCG/ACT Suspension 1 spray in each nostril Nasally Once a day Medication List reviewed and reconciled with the patient * Allergies: A moxialok: zayra[Allergies Verified] Objective: * Vitals: H t: 68.5, Wt: 209, BMI:31.31, BP:158/84, Repeat BP:148/90, Wt-k.8. weight is down 1 poiund since 02-17-24. * Examination: G eneral Examination: GENERAL APPEARANCE: a lert, well hydrated, in no distress.? HEAD: n ormocephalic. SKIN: g ood turgor. HEART: n o murmurs, rubs, gallops, regular rate and rhythm.? LUNGS: n o wheezes, rales, rhonchi, good air movement, clear to auscultation bilaterally. Assessment: * Assessment: 1. B orderline hypertension - R03.0 (Primary) 2 . E rectile dysfunction, unspecified erectile dysfunction type - N52.9 3 . P rediabetes - R73.03 Plan: * Treatment: 2. E rectile dysfunction, unspecified erectile dysfunction type Refill Tadalafil Tablet, 20 MG, 1/2 tablet, Orally, Once a day, 90 days, 60, Refills 4. 3. P rediabetes L AB: Hemoglobin A1c (Collection Date & Time - 08/17/2024) Value Reference Range H emoglobin A1c 5.8 Notes: pending labs?? * Procedure Codes: 8 3036 GLYCATED HEMOGLOBIN TEST, Modifiers: QW * Follow Up: 3 Months * * Sign off status: Completed true * Provider: Thang Soria MD Date: 0 08/17/2024 Generated for Jodeei ng/Meeg/eTransmitting on: 1 01:54 PM EDT History and Physical Notes * HPI (History of Present Illness) Category Sub-Category Detail Notes Category Not es Symptom(s) patient is a 49 yo male here for 6 month folllow up visit Examination Category Sub-Category Detail Notes Category Not es General Examination GENERAL APPEARANCE: alert, w ell hydrated, in no distress HEAD: normocephalic HEART: no murmurs, rubs, ga llops, regular rate and rhythm LUNGS: no wheezes, rales, r honchi, good air movement, clear to auscultation bilaterally SKIN: good turgor
--- OUTSIDE RECORDS SUMMARY | 2024-12-25 07:30 | XMS_ITS ---
Author Organization Brad Soria MD Address [address] [place] [phone] Care Team Providers Care Multifocal Button Inspector Name Role Phone Brad Soria Primary Care Provider Allergies Allergen (clinical drug ingredient) Drug/Non Drug Allergy documented on EMR Reaction Allergy Type Onset Date Status amoxicillin Amoxicillin rash Drug Allergy Act kennedy REASON FOR VISIT 3 MO F/U Medications Medication SIG (Take, Route, Frequency, Duration) Notes Start Date End Date Status Tadalafil 20 MG 1/2 tablet Orally On ce a day for 90 days 05/08/2022 Active EpiPen 2-[place] 0.3 MG/0.3ML as directed In jection daily for 30 days 08/15/2018 Active Atorvastatin Calcium 20 MG TAKE ONE TABLET BY MOUTH EVERY DAY for 90 Active Fluticasone Propionate 50 MCG/ACT 1 spray in each nostril Nasally Once a day for 30 day(s) 01/23/2021 Not-Taking Vital Signs Blood pressure systolic 122 mm Hg 12/26/19 25 Blood pressure diastolic 88 mm Hg 025 Height 68.5 in 12/25/2024 Weight 211 lbs 12/25/2024 BMI 31.61 kg/m2 12/25/2024 Encounters Encounter Location Date Provider Diagnosis Brad Soria MD [address] [facility] [address] [place] [phone] 12/25/2024 Brad Soria Prediabetes R73.03 Assessments Encounter Date Diagnosis (ICD Code) Assessment Notes Treatment Notes Treatment Clinical Notes Section Notes 12/25/2024 Prediabetes (ICD-10 - R73.03) will recheck in january Plan Of Treatment Treatment Notes Assessment Notes Prediabetes will recheck in jan Pending Test Test Name Order Date Hemoglobin A1c 12/25/2024 Glucose, finger stick 12/25/2024 Next Appt Details Provider Name:Brad Dubois ier, 03/26/2025 01:30:00 PM, [address] [place] [address], [address], [place], [place], [phone], Progress Notes * Kodi HENNESSY MDOB:[birth year] (49 yo M)Acc No.[id number]:12/25/2024 Progress Notes Patient: Anjelica SALGADOSILVIAEusebioKodi Anton Provider: Thang Soria MD :1975 A ge:49 Y S ex:Male Date:12/25/2024 Address:[address] [place], [place] [phone] Subjective: * Chief Complaints: * 3 MO F/U * HPI: S ymptom(s): patient is a 49 yo male here for 3 month follow up visit. * ROS: G eneral/Constitutional: Denies C hills. D enies F atigue. D enies F ever. D enies H eadache. E NT: Denies S ore throat. R espiratory: Denies C ough. D enies S hortness of breath at rest. D enies S hortness of breath with exertion. C ardiovascular: Denies C hest pain at rest. D enies C hest pain with exertion. D enies D izziness. D enies P alpitations. D enies S hortness of breath. G astrointestinal: Denies D iarrhea. D enies N ausea. * Medical History: * Surgical History: * Hospitalization/Major Diagno stic Procedure: * Medications: T akingEpiPen 2-[place] 0.3 MG/0.3ML Solution Auto-injector as directed Injection daily Tadalafil 20 MG Tablet 1/2 tablet Orally Once a day Atorvastatin Calcium 20 MG Tablet TAKE ONE TABLET BY MOUTH EVERY DAY Taking EpiPen 2-[place] 0.3 MG/0.3ML Solution Auto-injector as directed Injection daily Taking Tadalafil 20 MG Tablet 1/2 tablet Orally Once a day Taking Atorvastatin Calcium 20 MG Tablet TAKE ONE TABLET BY MOUTH EVERY DAY Not-Taking/PRNFluticasone Propionate 50 MCG/ACT Suspension 1 spray in each nostril Nasally Once a day Medication List reviewed and reconciled with the patientNot-Taking/PRN Fluticasone Propionate 50 MCG/ACT Suspension 1 spray in each nostril Nasally Once a day Medication List reviewed and reconciled with the patient * Allergies: A moxicillin: zayra[Allergies Verified] Objective: * Vitals: H t: 68.5, Wt: 211, BMI:31.61, BP:122/88, Wt-k.71. * Examination: G eneral Examination: GENERAL APPEARANCE: p leasant, in no acute distress, male.? HEAD: n ormocephalic. SKIN: g ood turgor. HEART: n o murmurs, rubs, gallops, regular rate and rhythm.? LUNGS: n o wheezes, rales, rhonchi, good air movement, clear to auscultation bilaterally. Assessment: * Assessment: 1. P rediabetes - R73.03 (Primary) Plan: * Treatment: * Procedure Codes: 8 2947 ASSAY, GLUCOSE, BLOOD QUANT, Modifiers: QW 44409 GLYCATED HEMOGLOBIN TEST, Modifiers: QW * * Sign off status: Completed true * Provider: Thang Soria MD Date: 0 12/25/2024 Generated for Lindsey goldman/Larry/Ranjititting on: 1 01:51 PM EDT History and Physical Notes * HPI (History of Present Illness) Category Sub-Category Detail Notes Category Not es Symptom(s) patient is a 49 yo male here for 3 month follow up visit Examination Category Sub-Category Detail Notes Category Not es General Examination GENERAL APPEARANCE: pleasant , in no acute distress, male HEAD: normocephalic HEART: no murmurs, rubs, ga llops, regular rate and rhythm LUNGS: no wheezes, rales, r honchi, good air movement, clear to auscultation bilaterally SKIN: good turgor
--- OUTSIDE RECORDS SUMMARY | 2025-03-19 03:45 | XMS_ITS ---
Author Organization Brad Soria MD Address [address] [place], [place] [phone] Care Team Providers Care Merchandise Presentation Associate Name Role Phone Brad Soria Primary Care Provider Results Component Value Reference Range Notes Complete Blood Count Auto Di ff Reviewed date:03/19/2025 12:27:31 PM Interpretation: Performing Lab:[facility], [address] [place] [phone] Notes/Report: White Blood Count 6.2 4.8-10.8 X10*3/uL Red Blood Count 4.67 4.60-5.80 X10*6/uL Hemoglobin 14.5 14.0-18.0 g/dl Hematocrit 42.6 42.0-52.0 % Mean Corpuscular Volume 91.2 80.0-98.0 fL Mean Corpuscular Hemoglobin 31.0 27.0-33.0 pg Mean Corpuscular HGB Conc 34.0 31.0-36.0 g/dl Red Cell Distribution Width 12.3 11.0-16.0 % Platelet Count 244 160-400 X10*3/uL Mean Platelet Volume 11.2 9.4-12.4 fL Neutrophils Percent Auto 67.0 45-73 % Imm Gran Pct Auto 0.5 0.0-0.4 % Lymphocytes Percent Auto 22.3 20-40 % Monocytes Percent Auto 8.2 2-11 % Eosinophils Percent Auto 1.5 0-4 % Basophils Percent Auto 0.5 0-2 % NRBC Pct Auto 0.0 0.0-0.2 /100WBC Neutrophils Absolute Auto 4.2 2.0-8.3 x10*3/u L Imm Gran Abs Auto 0.03 0.00-0.03 X10*3/uL Lymphocytes Absolute Auto 1.4 1.2-4.9 X10*3/u L Monocytes Absolute Auto 0.5 0.1-1.2 X10*3/uL Eosinophils Absolute Auto 0.1 0.0-0.4 X10*3/u L Basophils Absolute Auto 0.0 0.0-0.2 X10*3/uL NRBC Abs Auto 0.000 0.0-0.012 X10*3/uL Lipid Panel Reviewed date:03/19/2025 01:43:46 PM Interpretation: Performing Lab:[facility], [address] [place] [phone] Notes/Report: Triglycerides 75 <150 mg/dL Desirable Triglyceride: less than 150 mg/dL Borderline High Triglyceride 150-199 mg/dL High Triglyceride: 200-499 mg/dL Very High Triglyceride: greater than or equal to 5OO mg/dL Cholesterol 166 <200 mg/dL Desirable Cholesterol: less than 200 mg/dL Borderline High Cholesterol: 200-239 mg/dL High Cholesterol: greater than 239 mg/dL LDL Cholesterol Calculated 85 <100 mg/dL Desirable LDL: less than 100 mg/dL Near Optimal/Above Optimal LDL: 110-129 mg/dL Borderline High LDL: 130-159 mg/dL High LDL: 160-189 mg/dL Very High LDL: greater than or equal to 190 mg/dL HDL Cholesterol 66 >40 mg/dL Desirable HDL: greater than 40 mg/dL Note: This HDL assay may give artificially low results in patients with liver disease. PSA,Total (Free>4and<10) Reviewed date:03/19/2025 01:43:54 PM Interpretation: Performing Lab:[facility], [address] [place] [phone] Notes/Report: PSA,Total (Free>4and<10) 0.46 0.00-4.00 ng/mL A Free PSA was not performed: The percentage of Free PSA can be used to enhance the differentiation of prostate cancer from benign prostatic disease in subjects whose PSA levels are between 4.0 and 10.0 ng/mL. For subjects whose PSA levels are below 4.0 or above 10.0 ng/mL, the risk of prostate cancer is determined on the basis of the PSA alone. Therefore the % Free PSA is recommended only for those subjects whose PSA levels are between 4.0 and 10.0 ng/mL. PSA methodology: Sanders Alinity i Chemiluminescent Microparticle Immunoassay (CMIA) Microalbumin, Random Reviewed date:03/19/2025 01:43:38 PM Interpretation: Performing Lab:[address] [phone] Notes/Report: Creatinine Urine 169.05 Microalbumin Urine 7.0 Microalbum/Creatinine Ratio Ur 4.1 <30 ug/mg cr Albumin/Creatinine Ratio Reference Ranges: Normal: < 30 ug/mg creatinine Microalbuminuria: 30 - 300 ug/mg creatinine Clinical Albuminuria: > 300 ug/mg creatinine Hemoglobin A1c Reviewed date:03/19/2025 12:21:06 PM Interpretation: Performing Lab:[address] [phone] Notes/Report: Hemoglobin A1c % 5.8 <6.0 % Hemoglobin A1C Reference Range Adults: 4.8 - 6.0 % Non diabetic: < 6.0 % Goal: < 7.0 % Additional Action Suggested: > 8.0 % Note: Hemoglobin A1c results are invalid for patients with abnormal amounts of HbF. Blood transfusions may impact the HbA1c concentration in the patient sample. Estimated Average Glucose 120 eAG = Estimated average glucose which is %A1C expressed as average glucose, using the formula of the [id number]-[id number] Average Glucose study (ADAG), Diabetes Care, Vol.31,#8, Dec. 2007 UA ClnCatch+Micro w/rflx Cul t Reviewed date:03/19/2025 12:30:20 PM Interpretation: Performing Lab:[address] [phone] Notes/Report: Urine, Clean Catch Color Urine Yellow Appearance Urine Clear PH 8.5 5.0-9.0 Glucose Urine UA Negative Negative mg/dL Urine Blood Negative Negative Specific Hardy - Urine 1.020 1.005-1.025 Urine Protein Negative Neg-Trace mg/dL Urine Ketones Negative Negative mg/dL Nitrite Urine Negative Negative Leukocyte Esterase Urine Negative Negative RBC Urine 0-2 0-2 /HPF WBC Urine 0-5 0-5 /HPF Squamous Epithelial Cell Urine 0-2 0-2 /HPF Bacteria Urine None Seen None Seen Hyaline Casts Urine 0-2 0-2 /LPF REASON FOR VISIT FASTING LABS Encounters Encounter Location Date Provider Diagnosis Brad Soria MD [address] [place] [phone] 03/19/2025 Brad Soria Blood tests for routine general physical examination Z00.00 ; Prediabetes R73.03 ; Elevated cholesterol E78.00 and Neutropenia D70.9 Assessments Encounter Date Diagnosis (ICD Code) Assessment Notes Treatment Notes Treatment Clinical Notes Section Notes 03/19/2025 Blood tests for routine general physical examination (ICD-10 - Z00.00) 03/19/2025 Prediabetes (ICD-10 - R73.03) 03/19/2025 Elevated cholesterol (ICD-10 - E78.00) 03/19/2025 Neutropenia (ICD-10 - D70.9) Plan Of Treatment Pending Test Test Name Order Date Comprehensive [place]. Panel Fast Next Appt Details Provider Name:Brad Dubois ier, 03/26/2025 01:30:00 PM, [address] [facility], [address], [place], [place], [phone], Progress Notes * Kodi HENNESSY MDOB:[birth year] (49 yo M)Acc No.[id number]:03/19/2025 Progress Note Patient: Kodi ALVARADO Provider: Thang Soria MD :1975 A ge:49 Y S ex:Male Date:03/19/2025 Address:[address] [place], [place] [phone] Subjective: * Chief Complaints: * 1 . FASTING LABS. * Medical History: Objective: * Vitals: Assessment: * Assessment: 1. B lood tests for routine general physical examination - Z00.00 (Primary) 2 .?Prediabetes - R73.03 3 . E levated cholesterol - E78.00 4 . N eutropenia - D70.9 Plan: * Treatment: 2. P rediabetes L AB: Comprehensive [place]. Panel Fast L AB: Complete Blood Count Auto Diff (Collection Date & Time - 03/19/2025 07:45 AM) L AB: Lipid Panel (Collection Date & Time - 03/19/2025 07:45 AM) L AB: PSA,Total (Free>4and<10) (Collection Date & Time - 03/19/2025 07:45 AM) L AB: Microalbumin, Random (Collection Date & Time - 03/19/2025 07:45 AM) L AB: Hemoglobin A1c (Collection Date & Time - 03/19/2025 07:45 AM) L AB: UA ClnCatch+Micro w/rflx Cult (Collection Date & Time - 03/19/2025 07:45 AM) 3. E levated cholesterol L AB: Comprehensive [place]. Panel Fast L AB: Complete Blood Count Auto Diff (Collection Date & Time - 03/19/2025 07:45 AM) L AB: Lipid Panel (Collection Date & Time - 03/19/2025 07:45 AM) L AB: PSA,Total (Free>4and<10) (Collection Date & Time - 03/19/2025 07:45 AM) L AB: Microalbumin, Random (Collection Date & Time - 03/19/2025 07:45 AM) L AB: Hemoglobin A1c (Collection Date & Time - 03/19/2025 07:45 AM) L AB: UA ClnCatch+Micro w/rflx Cult (Collection Date & Time - 03/19/2025 07:45 AM) 4. N eutropenia L AB: Comprehensive [place]. Panel Fast L AB: Complete Blood Count Auto Diff (Collection Date & Time - 03/19/2025 07:45 AM) L AB: Lipid Panel (Collection Date & Time - 03/19/2025 07:45 AM) L AB: PSA,Total (Free>4and<10) (Collection Date & Time - 03/19/2025 07:45 AM) L AB: Microalbumin, Random (Collection Date & Time - 03/19/2025 07:45 AM) L AB: Hemoglobin A1c (Collection Date & Time - 03/19/2025 07:45 AM) L AB: UA ClnCatch+Micro w/rflx Cult (Collection Date & Time - 03/19/2025 07:45 AM) * * The named appointment provid er may or may not be the originator of this progress note, and it is not deemed complete until electronically signed by the appointment provider. Sign off status: Pending * Provider: Thang Soria MD Date: Generated for Lindsey goldman/Larry/Neelam on: 01:54 PM EDT
[2025-03-19 11:29] LABS: MANUAL DIFF FLAG NO
[2025-03-19 11:35] LABS: Appearance Urine Clear; Glucose Urine UA Negative (Negative); PH 8.5 (5.0-9.0); Specific Gravity - Urine 1.020 (1.005-1.025)
[2025-03-19 11:39] LABS: Hematocrit 42.6 % (42.0-52.0); Hemoglobin 14.5 g/dl (14.0-18.0); Imm Gran Abs Auto 0.03 X10*3/uL (0.00-0.03); Imm Gran Pct Auto 0.5 % (0.0-0.4); Lymphocytes Absolute Auto 1.4 X10*3/uL (1.2-4.9); Mean Corpuscular HGB Conc 34.0 g/dl (31.0-36.0); Mean Corpuscular Hemoglobin 31.0 pg (27.0-33.0); Mean Corpuscular Volume 91.2 fL (80.0-98.0); NRBC Abs Auto 0.000 X10*3/uL (0.0-0.012); NRBC Pct Auto 0.0 /100WBC (0.0-0.2); Platelet Count 244 X10*3/uL (160-400); Red Blood Count 4.67 X10*6/uL (4.60-5.80); White Blood Count 6.2 X10*3/uL (4.8-10.8)
[2025-03-19 12:17] LABS: Hemoglobin A1C 150.1821 umol/L
[2025-03-19 12:19] LABS: Albumin Level 4.6 g/dL (3.5-5.0); Alkaline Phosphatase 64 U/L (39-117); Anion Gap 11 (12-20); Aspartate Amino Transferase 29 U/L (5-37); Blood Urea Nitrogen 12 mg/dL (9-16); Calcium 9.8 mg/dL (8.4-10.2); Carbon Dioxide 28 mmol/L (22-29); Chloride 104 mmol/L (96-108); Cholesterol 166 mg/dL (<200); Estimated Glomerular Filt Rate > 60; HDL Cholesterol 66 mg/dL (>40); Potassium 4.3 mmol/L (3.3-5.1); Sodium 139 mmol/L (135-145); Total Protein 7.4 g/dL (6.5-8.0); Triglycerides 75 mg/dL (<150)
[2025-03-19 12:29] LABS: PSA,Total (Free>4and<10) 0.46 ng/mL (0.00-4.00)
[2025-03-19 12:32] LABS: Alanine Aminotransferase 33 U/L (0-40)
[2025-03-19 12:47] LABS: Microalbum/Creatinine Ratio Ur 4.1 ug/mg cr (<30)
--- OUTSIDE RECORDS SUMMARY | 2025-03-19 13:52 | XMS_ITS | Encounter Summary ---
Author Organization [facility] Address [address] [place] [phone] Phone Care Team Providers Care Sales Agent Financial Report Service Name Role Phone Brad Soria MD Primary Care Provider Encounter Details Date Type Department Care Team (Late st Contact Info) Description 02/17/2021 Transcribe Orders [address] [place] [address] Brad Soria MD [address] [place] [address] [facility] [address] Acid phosphatase elevated (Primary Dx) Social History Tobacco Use Types Packs/Day Years Used Date Smoking Tobacco: Never Assessed Sex and Gender Information Value Date Recorded Sex Assigned at Not on file Legal Sex Male 9:28 PM EDT Gender Identity Not on file Sexual Orientation Not on file documented as of this encounter Plan of Treatment Not on file documented as of this encounter Results * Alkaline phosphatase (02/17/2021 1:44 PM EDT) ALKALINE PHOSPHATASE 74 39 - 117 U/L [facility] Blood 02/17/2021 1:44 PM EDT 02/17/2021 1:46 PM EDT us Brad Soria MD LAB BLOOD ORDERABLES Fi nal Result [facility] [address] [place] [address] documented in this encounter Visit Diagnoses Diagnosis Acid phosphatase elevated- Primary Other nonspecific abnormal serum enzyme levels documented in this encounter Care Teams Sales Agent Financial Report Service Relationship Specialty Start Date End Date Brad Soria MD [address] [place] [address] [place] [address] PCP - General Internal Medicine 02/17/21 documented as of this encounter Additional Source Comments The information contained in this document represents components of the legal health record. It is not the complete legal health record.[facility]
--- OUTSIDE RECORDS SUMMARY | 2025-03-19 13:52 | XMS_ITS | Patient Health Record ---
Author Organization [facility] Address [address] [place] [address] Care Team Providers Care Resistor Winder Name Role Phone Brad Soria MD Primary Care Provider Jonathon Muhammad [phone] Allergies Allergen (clinical drug ingredient) Drug/Non Drug Allergy documented on EMR Reaction Allergy Type Onset Date Status amoxicillin Amoxicillin Unknown Drug Allergy Act kennedy Reason For Referral No Information Medications Medication SIG (Take, Route, Frequency, Duration) Notes Start Date End Date Status Atorvastatin Calcium 20 MG TAKE 1 TABLET BY MOUTH EVERY DAY Oral; Duration: 90 Active Immunizations Vaccine Route Administration Date Status Comme nts Influenza Unknown 03/14/2022 Administered Social History Tobacco Use: Social History Observation Description Date Details (start date - stop date) Never Smoker NA - NA Tobacco Use/Smoking Question Answer Notes Patient is a nonsmoker Alcohol Screen Question Answer Notes Did you have a drink contain ing alcohol in the past year? Yes How often did you have a dri nk containing alcohol in the past year? 2 to 3 times a week (3 points) How many drinks did you have on a typical day when you were drinking in the past year? 3 or 4 drinks (1 point) How often did you have 6 or more drinks on one occasion in the past year? Never (0 point) Points 4 Interpretation Positive Section Notes: Nonsmoker; no significant al cohol use Problems Problem Type SNOMED Code ICD Code Onset Dates Problem Status W/U Status Risk Notes Problem Colon cancer screening (697553378) Colon cancer screening (Z12.11) Active confirmed Problem Pre-procedure evaluation check (820365429) Pre-procedural examination (Z01.818) Active confirmed Plan Of Treatment Future Test Test Name Order Date COLONOSCOPY 06/20/2022 Insurance Providers Payer Name Payer Address Payer Phone Subscriber Number Group Number Insured Name Patient Relationship to Insured Coverage Start Date Coverage End Date [facility] [address] [place], [place] [id number] CARLOS ENRIQUE OLIVA Self - patient is the insured Medical (General) History Medical History History ICD Code Denies AL,DM,CVA,Lung disease,renal dise ase Hyperlipidemia Surgical History Surgery Date(Month/Year)
--- OUTSIDE RECORDS SUMMARY | 2025-03-19 13:52 | XMS_ITS | Patient Health Record ---
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 Name Role Phone Brad Soria Primary Care Provider Allergies Allergen (clinical drug ingredient) Drug/Non Drug Allergy documented on EMR Reaction Allergy Type Onset Date Status amoxicillin Amoxicillin rash Drug Allergy Act kennedy Results Component Value Reference Range Notes Hemoglobin A1c Reviewed date:08/17/2024 03:46:07 PM Interpretation: Performing Lab: Notes/Report: Hemoglobin A1c 5.8 Complete Blood Count Auto Di ff Reviewed date:03/19/2025 12:27:31 PM Interpretation: Performing Lab:[facility], [address] [place] [phone] Notes/Report: White Blood Count 6.2 4.8-10.8 X10*3/uL [...] Panel Reviewed date:03/19/2025 01:43:46 PM Interpretation: Performing Lab:[address] [phone] Notes/Report: Triglycerides 75 <150 mg/dL Desirable Triglyceride: [...] (Free>4and<10) Reviewed date:03/19/2025 01:43:54 PM Interpretation: Performing Lab:[address] [phone] Notes/Report: PSA,Total (Free>4and<10) 0.46 0.00-4.00 ng/mL A [...] Random Reviewed date:03/19/2025 01:43:38 PM Interpretation: Performing Lab:[address] [phone] Notes/Report: Creatinine Urine 169.05 Microalbumin Urine 7.0 Microalbum/Creatinine Ratio Ur 4.1 <30 ug/mg cr Albumin/Creatinine Ratio Reference Ranges: Normal: < 30 ug/mg creatinine Microalbuminuria: 30 - 300 ug/mg creatinine Clinical Albuminuria: > 300 ug/mg creatinine Hemoglobin A1c Reviewed date:03/19/2025 12:21:06 PM Interpretation: Performing Lab:[facility], [address] [place] [phone] Notes/Report: Hemoglobin A1c % 5.8 <6.0 % [...] average glucose, using the formula of the P4S-Soucynj Average Glucose study (ADAG), Diabetes Care, Vol.31,#8, Dec. 2007 UA ClnCatch+Micro w/rflx Cul t Reviewed date:03/19/2025 12:30:20 PM Interpretation: Performing Lab:[facility], [address] [place] [phone] Notes/Report: Urine, Clean Catch Color Urine Yellow Appearance Urine Clear PH 8.5 5.0-9.0 Glucose Urine UA Negative Negative mg/dL Urine Blood Negative Negative Specific [place] - Urine 1.020 1.005-1.025 Urine Protein Negative Neg-Trace mg/dL Urine Ketones Negative Negative mg/dL Nitrite Urine Negative Negative Leukocyte Esterase Urine Negative Negative RBC Urine 0-2 0-2 /HPF WBC Urine 0-5 0-5 /HPF Squamous Epithelial Cell Urine 0-2 0-2 /HPF Bacteria Urine None Seen None Seen Hyaline Casts Urine 0-2 0-2 /LPF Comprehensive Met. Panel (No t yet reviewed by provider) Interpretation: Performing Lab:[facility], [address] [place] [phone] Notes/Report: Sodium 139 135-145 mmol/L Potassium 4.3 3.3-5.1 mmol/L Chloride 104 96-108 mmol/L Carbon Dioxide 28 22-29 mmol/L Anion Gap 11 12-20 Blood Urea Nitrogen 12 9-16 mg/dL Creatinine 0.82 0.5-1.4 mg/dL Estimated Glomerular Filt Rate > 60 Chronic Kidney Disease: Estimated GFR < 60 mL/min/1.73m2 Severe Kidney Disease: Estimated GFR < 15 mL/min/1.73m2 Glucose Random 96 60-115 mg/dL Calcium 9.8 8.4-10.2 mg/dL Bilirubin Total 0.4 0.0-1.0 mg/dL Aspartate Amino Transferase 29 5-37 U/L Alanine Aminotransferase 33 0-40 U/L Total Protein 7.4 6.5-8.0 g/dL Albumin Level 4.6 3.5-5.0 g/dL Alkaline Phosphatase 64 39-117 U/L Reason For Referral No Information Medications Medication [...] a day for 30 day(s) 01/23/2021 Not-Taking Immunizations Vaccine Route Administration Date Status Rodger nguyen Fluarix Quadrivalent IM Intramuscular 02/03/2016 Administrobert cruz pt was given the vaccine at the [facility] in [place]. Fluarix Quadrivalent Unknown 02/12/2017 Administered [facility] [place] Fluarix Quadrivalent Unknown 02/04/2018 Administered pt was given the vaccine at [facility] [place]. TDaP Unknown 05/31/2015 Administered pt was given the vaccine at [facility] in [place]. Fluarix Quadrivalent Unknown 02/09/2019 Administered cv s SARS-COV-2 Pfizer Unknown 06/28/2020 Administered SARS-COV-2 Pfizer Unknown 07/19/2020 Administered Fluarix Quadrivalent Unknown 02/20/2021 Administered [facility] Fluarix Quadrivalent Unknown 02/20/2021 Administered [facility] SARS-COV-2 Pfizer Unknown 03/21/2021 Administered [facility] Fluarix Quadrivalent IM Intramuscular 02/04/2023 Administe red Flu Vaccine Unknown 03/14/2015 Refused pt got it at work. Social History Tobacco Use: Social History Observation [...] Never (0 point) Points 2 Interpretation Negative Problems Problem Type SNOMED Code ICD Code Onset Dates Problem Status W/U Status Risk Notes Problem 139126574 Atherosclerotic heart disease of [place] coronary artery without angina pectoris (I25.10) Active confirmed Problem Neutropenia (204691464) Neutropenia (D70.9) Active confirmed Problem 401108112 Erectile dysfunction, unspecified erectile dysfunction type (N52.9) Active confirmed Problem 719695304 Lung nodule (R91.1) Active confirmed Problem 873570045 Food allergy (Z91.018) Active confirmed Problem 760779719 Prediabetes (R73.03) Active confirmed Problem 42770286 Elevated cholesterol (E78.00) Active confirmed Problem 525203915 Body mass index (BMI) of 31.0-31.9 in adult (Z68.31) Active confirmed Vital Signs Blood pressure diastolic 88 mm Hg 12/25/2024 Height 68.5 in 12/25/2024 Blood pressure systolic 122 mm Hg 12/25/2024 Weight 211 lbs 12/25/2024 BMI 31.61 kg/m2 12/25/2024 Encounters Encounter Location Date Provider Diagnosis Brad Soria MD [address] [place] [id number] 03/19/2025 Brad Soria Blood tests for routine general physical examination Z00.00 ; Prediabetes R73.03 ; Elevated cholesterol E78.00 and Neutropenia D70.9 Brad Soria MD [address] [place] [id number] 08/17/2024 Brad Soria Erectile dysfunction , unspecified erectile dysfunction type N52.9 ; Borderline hypertension R03.0 and Prediabetes R73.03 Brad Soria MD [address] [place] [address] [id number] 12/25/2024 Brad Soria Prediabetes R73.03 Assessments Encounter Date Diagnosis (ICD Code) Assessment Notes Treatment Notes Treatment Clinical Notes Section Notes 03/19/2025 Blood tests for routine general physical examination (ICD-10 - Z00.00) 08/17/2024 Erectile dysfunction, unspecified erectile dysfunction type (ICD-10 - N52.9) 08/17/2024 Borderline hypertension (ICD-10 - R03.0) wants to diet and recheck in 3 months, will continue to monitor 12/25/2024 Prediabetes (ICD-10 - R73.03) will recheck in 03/19/2025 Prediabetes (ICD-10 - R73.03) 08/17/2024 Prediabetes (ICD-10 - R73.03) pending labs 03/19/2025 Elevated cholesterol (ICD-10 - E78.00) 03/19/2025 Neutropenia (ICD-10 - D70.9) Plan Of Treatment Pending Test Test Name Order Date Electrocardiogram (EKG) 04/27/2016 Hemoglobin A1c 12/25/2024 Glucose, finger stick 12/25/2024 CT CHEST WITH CONTRAST 03/28/2021 Comprehensive Met. Panel 03/19/2025 Comprehensive [place]. Panel Fast CT chest wo con 02/24/2021 Next Appt Details Provider Name:Brad Dubois ier, 03/26/2025 01:30:00 PM, [address] [facility], [address], [place], [place], [id number], Insurance Providers Payer Name Payer Address Payer Phone Subscriber Number Group Number Insured Name Patient Relationship to Insured Coverage Start Date Coverage End Date [employer] [facility] [address] [place], [place] [phone] [id number] Kodi Peace Self - patient is the insured Medical (General) History Medical History History ICD Code lung nodule not in need of any further f ollow up colonoscopy 06/14/23 repeat 10 years
--- OUTSIDE RECORDS SUMMARY | 2025-03-19 13:54 | XMS_ITS | Clinical Summary ---
Author Organization [facility] Address [address] [place], [place] [phone] Phone Care Team Providers Care Baker Head Name Role Phone Brad Soria MD Primary Care Provider Social History Tobacco Use Types Packs/Day Years Used Date Smoking Tobacco: Never Assessed Education Answer Date Recorded Are you interested in more education? Not on marilee e 09/21/2022 Are you concerned about learning? Not on file 09/21/2022 No 09/21/2022 No 09/21/2022 Digital Access Answer Date Recorded No 10/22/2022 No 10/22/2022 No 10/22/2022 Reliable internet access at home? Not on file 10/22/2022 Device with a working camera? Not on file Sex and Gender Information Value Date Recorded Sex Assigned at Not on file Legal Sex Male 9:28 PM EDT Gender Identity Not on file Sexual Orientation Not on file Plan of Treatment Health Maintenance Due Date Last Done Comments DEPRESSION SCREENING 1987 SMOKING Hx and SMOKELESS TOBACCO SCREENING 1988 HEPATITIS C SCREENING 1993 HIV ONE-TIME SCREENING (18-65 YEARS) 1993 COLOGUARD 2020 COLONOSCOPY 2020 COLORECTAL CANCER SCREENING 2020 FIT TEST 2020 FOBT 2020 SIGMOIDOSCOPY 2020 VIRTUAL COLONOSCOPY 2020 INFLUENZA VACCINE (#1) 2024 , 02/09/2019, 02/17/2018, Additional history exists COVID-19 VACCINE ( season) 2025 07/05/2020, 06/14/2020 Adult Td,Tdap Booster 05/31/2025 05/31/2015 LIPID PANEL 08/10/2029 08/10/2024, 01/25, 08/13/2023, Additional history exists HEPATITIS A VACCINES Aged Out No long er eligible based on patient's age to complete this topic HIB VACCINES Aged Out No longer eligi ble based on patient's age to complete this topic MENINGOCOCCAL VACCINES (ACWY) Aged Out No longer eligible based on patient's age to complete this topic MENINGOCOCCAL VACCINES (B) Aged Out N o longer eligible based on patient's age to complete this topic PNEUMOCOCCAL VACCINES (0-49 years) Aged Out No longer eligible based on patient's age to complete this topic Medical Devices Not on file Procedures Procedure Name Priority Date/Time Associated Diagnosis Comments LIPID PANEL Routine 08/10/2024 9:41 AM EDT Prediabetes Elevated cholesterol from Last 3 Months or Most Recently Relevant to Health Maintenance Results * (ABNORMAL) Lipid panel (08/10/2024 9:41 AM EDT) HDL 56 mg/dL [facility] Comment: Interpretation <40 mg/dL: Low HDL cholesterol (major risk factor for CHD) Greater than or equal to 60 mg/dL: High HDL cholesterol ( negative risk factor for CHD) HDL - cholesterol is affected by a number of factors, e.g. smoking, excerise, hormones, sex and age. CHOLESTEROL 149 0 - 240 mg/dL [facility] TRIGLYCERIDES 76 30 - 160 mg/dL [facility] LDL 78 50 - 129 mg/dL [facility] Comment: LDL levels in terms of risk for coronary heart disease: <100 mg/dL: Optimal 100-129 mg/dL: Near or above optimal 130-159 mg/dL: Borderline high 160-189 mg/dL: High >190 mg/dL: Very High CARDIAC RISK RATIO 2.7(L) 3.4 - 5.0 [facility] Blood 08/10/2024 9:41 AM EDT 08/10/2024 9:45 AM EDT us Brad Soria MD LAB BLOOD ORDERABLES Fi nal Result [address] [address] from Last 3 Months or Most Recently Relevant to Health Maintenance Insurance BLUE CROSS OUT OF STATE PPO BLUE [employer]OSS OUT OF STATE PPO BLUE CROSS OUT OF STATE PPO BLUE CROSS OUT OF STATE PPO BLUE CROSS OUT OF STATE PPO BLUE CROSS OUT OF STATE PPO BLUE CROSS OUT OF STATE PPO BLUE CROSS OUT OF STATE PPO BLUE CROSS OUT OF STATE PPO Care Teams Baker Head Relationship Specialty Start Date End Date Brad Soria MD [address] [place] [address] [place] [address] PCP - General Internal Medicine 02/17/21 Additional Source Comments The information contained in this document represents components of the legal health record. It is not the complete legal health record.[facility]
== END 2025-03-19 11:27 | disposition home or self-care (01) ==
LOC: HO.LNP 11:26
PROVIDERS: Visit Provider Internal Medicine
DX: Z00.00 Encounter for general adult medical examination without abnormal findings (principal); R73.03 Prediabetes; E78.00 Pure hypercholesterolemia, unspecified; D70.9 Neutropenia, unspecified; Z12.5 Encounter for screening for malignant neoplasm of prostate
CPT/HCPCS: 80053; 80061; 81001; 82043; 82570; 83036; 84153; 85025